=== PATIENT | female | born 1940 | race Caucasian/White ===

== ENCOUNTER 2025-02-04 11:37 | Outpatient (CLI) | payer MEDICARE | END 2025-02-04 11:38 | disposition home or self-care (01) | LOC: RAD 11:37 | PROVIDERS: ATTEND Nurse Practitioner Family | DX: M54.50 Low back pain, unspecified (principal); Z95.0 Presence of cardiac pacemaker | CPT/HCPCS: 71046 ==

== ENCOUNTER 2025-02-17 10:50 | Outpatient (CLI) | payer MEDICARE | END 2025-02-17 10:51 | disposition home or self-care (01) | LOC: MRI 10:50 | PROVIDERS: ATTEND Nurse Practitioner Family | DX: M54.50 Low back pain, unspecified (principal); M48.061 Spinal stenosis, lumbar region without neurogenic claudication | CPT/HCPCS: 72148; 76014 ==